=== PATIENT | male | born 2000 | race Caucasian/White ===

== ENCOUNTER 2022-03-25 14:42 | Emergency (ER) | payer BC ==
[2022-03-25] MEDS ORDERED: Sodium Chloride 0.9% 10 ML Syringe FLUSH PRN (18:19)
[2022-03-25] MEDS ORDERED: Sodium Chloride 0.9% 2.5 ML Syringe FLUSH PRN (18:19)
[2022-03-25] MEDS ORDERED: Ketorolac 30 MG/ML SDV IVPUSH ONE (18:19)
[2022-03-25 19:59] LABS: CARBON DIOXIDE,CO2 25.8 mmol/L (21.0-32.0); POTASSIUM,K 3.9 mmol/L (3.5-5.1)
[2022-03-25] MEDS ORDERED: Lidocaine 5% 700 MG Patch TOP ONE (20:36)
[2022-03-25] MEDS ORDERED: Acetaminophen 325 MG Tab PO ONE (20:36)
== END 2022-03-25 21:04 | disposition home or self-care (01) ==
LOC: MW.ED 14:42
DX: J40 Bronchitis, not specified as acute or chronic (principal)
CPT/HCPCS: 36415; 71045; 80053; 84484; 85025; 85379; 93005; 96374; 99284; A9270; J1885; J3490

== ENCOUNTER 2022-08-13 15:04 | Emergency (ER) | payer BC ==
[2022-08-13] MEDS ORDERED: Ondansetron 4 MG Tab.DIS PO ONE (16:08)
== END 2022-08-13 16:51 | disposition home or self-care (01) ==
LOC: MW.ED 15:04
DX: R11.10 Vomiting, unspecified (principal); Z72.0 Tobacco use
CPT/HCPCS: 99283; A9270

== ENCOUNTER 2023-07-06 01:37 | Emergency (ER) | payer BC ==
[2023-07-06] MEDS: Benzonatate 100 MG Cap PO ONE (01:50)
== END 2023-07-06 03:46 | disposition home or self-care (01) ==
LOC: MW.ED 01:37
DX: J00 Acute nasopharyngitis [common cold] (principal)
CPT/HCPCS: 71046; 87651; 99283; A9270

== ENCOUNTER 2023-10-21 00:40 | Emergency (ER) | payer BC ==
[2023-10-21 01:39] LABS: CORONAVIRUS COVID-19 NAA NEGATIVE (NEGATIVE); INFLUENZA A NAA NEGATIVE (NEGATIVE); INFLUENZA B NAA NEGATIVE (NEGATIVE)
[2023-10-21] MEDS: Ketorolac 30 MG/ML SDV IM ONE (03:36)
[2023-10-21] MEDS: Amoxicillin/Clavulanate K 875-125 MG Tab PO STA (03:36)
== END 2023-10-21 03:45 | disposition home or self-care (01) ==
LOC: MW.ED 00:40
DX: K02.9 Dental caries, unspecified (principal); K04.7 Periapical abscess without sinus; F17.210 Nicotine dependence, cigarettes, uncomplicated; Z75.8 Other problems related to medical facilities and other health care
CPT/HCPCS: 0240U; 87651; 96372; 99283; A9270; J1885

== ENCOUNTER 2024-02-12 03:30 | Emergency (ER) | payer BC ==
[2024-02-12] MEDS: Ibuprofen 600 MG Tab PO ONE (03:53)
[2024-02-12] MEDS: Gabapentin 300 MG Cap PO ONE (04:01)
== END 2024-02-12 04:46 | disposition home or self-care (01) ==
LOC: MW.ED 03:30
DX: M79.2 Neuralgia and neuritis, unspecified (principal)
CPT/HCPCS: 99283; A9270; 99282

== ENCOUNTER 2024-02-14 22:03 | Emergency (ER) | payer BC | END 2024-02-14 23:47 | disposition home or self-care (01) | LOC: MW.ED 22:03 | DX: K52.9 Noninfective gastroenteritis and colitis, unspecified (principal); F17.210 Nicotine dependence, cigarettes, uncomplicated | CPT/HCPCS: 99284 ==

== ENCOUNTER 2024-08-24 11:38 | Emergency (ER) | payer BC | END 2024-08-24 13:03 | disposition home or self-care (01) | LOC: MW.ED 11:38 | DX: S62.512A Displaced fracture of proximal phalanx of left thumb, initial encounter for closed fracture (principal); Z75.3 Unavailability and inaccessibility of health-care facilities; W23.0XXA Caught, crushed, jammed, or pinched between moving objects, initial encounter; Y99.0 Civilian activity done for income or pay | CPT/HCPCS: 73140-26-FA; 73140-FA; 99283 ==

== ENCOUNTER 2024-12-04 16:44 | Emergency (ER) | payer BC | END 2024-12-04 17:09 | disposition home or self-care (01) | LOC: MW.ED 16:44 | DX: J02.9 Acute pharyngitis, unspecified (principal); Z79.899 Other long term (current) drug therapy | CPT/HCPCS: 99283; J8540 ==

== ENCOUNTER 2024-12-13 14:20 | Emergency (ER) | payer BC | END 2024-12-13 15:05 | disposition home or self-care (01) | LOC: MW.ED 14:20 | DX: S09.90XA Unspecified injury of head, initial encounter (principal); W22.8XXA Striking against or struck by other objects, initial encounter | CPT/HCPCS: 99283 ==

== ENCOUNTER 2025-01-06 23:50 | Emergency (ER) | payer SELFPAY | END 2025-01-07 01:16 | disposition home or self-care (01) | LOC: MW.ED 23:50 | DX: S60.212A Contusion of left wrist, initial encounter (principal); E66.9 Obesity, unspecified; Z68.43 Body mass index [BMI] 50.0-59.9, adult; Z75.3 Unavailability and inaccessibility of health-care facilities; W18.40XA Slipping, tripping and stumbling without falling, unspecified, initial encounter | CPT/HCPCS: 73110-26-LT; 73110-LT; 99283 ==